=== PATIENT | female | born 1950 | race Caucasian/White ===

== ENCOUNTER 2022-03-10 21:56 | Emergency (ER) | payer MEDICARE, BC ==
[2022-03-10 22:26] LABS: ESTIMATED GFR 101 mL/min (>60)
[2022-03-10] MEDS ORDERED: Ondansetron 4 MG Tab.DIS PO ONE (22:29)
[2022-03-10] MEDS ORDERED: Ondansetron 4 MG Tab.DIS ONE (22:30)
[2022-03-10] MEDS ORDERED: Sodium Chloride 0.9% 1,000 ML IV ONE (22:31)
[2022-03-10] MEDS ORDERED: Ondansetron 4 MG/2 ML SDV IVPUSH ONE (22:38)
[2022-03-11] MEDS ORDERED: Diphtheria,Pertussis(Acell),Tetanus Vaccine 0.5 ML Syringe IM ONE (00:43)
== END 2022-03-11 01:40 | disposition home or self-care (01) ==
LOC: FB.ED 21:56
DX: S01.81XA Laceration without foreign body of other part of head, initial encounter (principal); S63.501A Unspecified sprain of right wrist, initial encounter; E87.1 Hypo-osmolality and hyponatremia; F10.129 Alcohol abuse with intoxication, unspecified; Z23 Encounter for immunization; W01.10XA Fall on same level from slipping, tripping and stumbling with subsequent striking against unspecified object, initial encounter
CPT/HCPCS: 12011; 36415; 70450; 73110; 80053; 80307; 85025; 90471; 96361; 96374; 99284; J2405; J7030; Q0162

== ENCOUNTER 2024-10-21 11:27 | Emergency (ER) | payer MEDICARE, BC ==
[2024-10-21 12:27] LABS: BLOOD UREA NITROGEN,BUN 12 mg/dL (7-18); CALCIUM 8.7 mg/dL (8.6-10.2); CARBON DIOXIDE,CO2 20 mmol/L (21-32); CHLORIDE,CL 93 mmol/L (100-110); CREATININE 0.8 mg/dL (0.55-1.02); EST CRCL DRUG DOSING (CG) 58.04 mL/min; ESTIMATED GFR 79 mL/min (>60); GLUCOSE RANDOM 104 mg/dL (80-116); SODIUM,NA 130 mmol/L (135-145)
[2024-10-21 12:28] LABS: HEMATOCRIT 29.8 % (34.2-48.2); HEMOGLOBIN 10.5 g/dL (11.4-15.5); MEAN CORPUSCULAR HEMOGLOBIN 35.3 pg (23.9-33.9); MEAN CORPUSCULAR HGB CONC 35.2 g/dL (31.9-34.8); MEAN CORPUSCULAR VOLUME 100.4 fL (76.7-100.5); PLATELET COUNT,PLT 204 x10(3)uL (151-488); RED BLOOD CELL COUNT 2.97 x10(6)uL (3.60-5.20); RED CELL DISTRIBUTION WIDTH 13.1 % (12.3-16.5); WHITE BLOOD CELL COUNT,WBC 6.7 x10-3/uL (3.0-10.3)
[2024-10-21 12:33] LABS: A/G RATIO 1.1; ALANINE AMINOTRANSFERASE,ALT 26 U/L (12-36); ALBUMIN 3.9 g/dL (3.2-4.6); ALKALINE PHOSPHATASE 100 IU/L (56-112); ASPARTATE AMNIOTRANSFERASE,AST 29 IU/L (5-25); BILIRUBIN TOTAL 1.8 mg/dL (0.1-1.3); MAGNESIUM 1.3 mg/dL (1.8-2.5); PROTEIN TOTAL,TP 7.5 g/dL (6.0-8.0)
[2024-10-21 12:47] LABS: LYMPHOCYTES PERCENT MAN 11 % (13-37); MONOCYTES PERCENT MAN 5 % (4-12); SEG NEUTROPHILS PERCENT MAN 84 % (46-82)
[2024-10-21 12:51] LABS: APPEARANCE,URINE SLIGHTLY CLOUDY (CLEAR); BILIRUBIN,URINE NEGATIVE (NEGATIVE); COLOR,URINE YELLOW (YELLOW); GLUCOSE,URINE NORMAL (NORMAL); KETONES,URINE NEGATIVE (NEGATIVE); LEUKOCYTE ESTERASE,URINE MODERATE (NEGATIVE); NITRITE,URINE NEGATIVE (NEGATIVE); OCCULT BLOOD,URINE MODERATE (NEGATIVE); PROTEIN,URINE TRACE mg/dL (NEGATIVE); UROBILINOGEN,URINE NORMAL (NEGATIVE)
[2024-10-21 12:57] LABS: RBC,URINE 0-5 (0-5); SQUAMOUS EPITHELIAL CELLS,UR FEW (NS,R,O)
[2024-10-21 12:58] LABS: BACTERIA,URINE MANY (NS)
[2024-10-21] MEDS: Iopamidol 755 Mg/ML 100 ML Bottle IV ONE (14:55)
[2024-10-21] MEDS ORDERED: Naloxone 0.4 MG/ML SDV IVPUSH PRN (15:38)
[2024-10-21] MEDS: Ondansetron 4 MG/2 ML SDV IVPUSH ONE (15:48)
[2024-10-21] MEDS: Morphine 2 MG/ML SYRINGE IVPUSH ONE ×2 (15:48→16:44)
[2024-10-21] MEDS: Sodium Chloride 0.9% 1,000 ML IV SCH (16:49)
== END 2024-10-21 17:40 ==
LOC: FB.ED 11:27
DX: S52.532A Colles' fracture of left radius, initial encounter for closed fracture (principal); S22.42XA Multiple fractures of ribs, left side, initial encounter for closed fracture; S52.572A Other intraarticular fracture of lower end of left radius, initial encounter for closed fracture; S62.645A Nondisplaced fracture of proximal phalanx of left ring finger, initial encounter for closed fracture; S32.019A Unspecified fracture of first lumbar vertebra, initial encounter for closed fracture; S32.049A Unspecified fracture of fourth lumbar vertebra, initial encounter for closed fracture; I10 Essential (primary) hypertension; E78.00 Pure hypercholesterolemia, unspecified; Z79.899 Other long term (current) drug therapy; W07.XXXA Fall from chair, initial encounter; Y93.89 Activity, other specified
CPT/HCPCS: 29105; 36415; 71046; 73090-LT; 73110-LT; 74160; 74176; 80053; 81001; 83690; 83735; 85025; 87086; 87088; 87186; 96361; 96374; 96375; 96376; 99285; 99285-25; J2270; J2405; J7030; Q9967

== ENCOUNTER 2024-10-24 10:12 | Inpatient (IN) | payer MEDICARE, BC ==
[2024-11-01] MEDS: Acetaminophen 500 MG Tab PO SCH (14:49)
[2024-11-01] MEDS ORDERED: oxyCODONE 5 MG Tab PO PRN (15:30)
[2024-11-01] MEDS ORDERED: Polyethylene Glycol 3350 Powder 17 GM Packet PO PRN (15:30)
[2024-11-01] MEDS ORDERED: Bisacodyl 10 MG Supp RECTAL PRN (15:30)
[2024-11-01] MEDS ORDERED: Triamcinolone Acetonide 0.1% Crm 15 GM Tube TOP PRN (15:43)
[2024-11-01] MEDS: Methocarbamol 500 MG Tab PO SCH (16:29)
[2024-11-01] MEDS: Gabapentin 300 MG Cap PO SCH (16:29)
[2024-11-01] MEDS: oxyCODONE 5 MG Tab PO PRN (18:34)
[2024-11-01] MEDS: Calcium Carbonate 500 MG Tablet PO SCH (18:36)
[2024-11-01] MEDS: atorvaSTATin 20 MG Tab PO SCH (20:19)
[2024-11-01] MEDS: Enoxaparin 30 MG/0.3 ML Syringe SUBCUT SCH (20:20)
[2024-11-01] MEDS: Sodium Chloride 1 GM Tab PO SCH (20:20)
[2024-11-01] MEDS: Lidocaine 4% Patch TOP SCH (20:20)
[2024-11-02] MEDS: Melatonin 3 MG Tab PO PRN (00:33)
[2024-11-02] MEDS: Losartan 50 MG Tab PO SCH (09:39)
[2024-11-02] MEDS: Magnesium Chloride 64 MG Tab.ER PO SCH (09:39)
[2024-11-02] MEDS: Ferrous Sulfate 325 MG Tab PO SCH (09:39)
[2024-11-02] MEDS: Cholecalciferol (Vitamin D3) 5,000 UNIT Cap PO SCH (09:41)
[2024-11-02] MEDS: Multivitamin Tab PO SCH (09:44)
[2024-11-02] MEDS: Gabapentin 300 MG Cap PO SCH (20:17)
[2024-11-05 06:48] LABS: BASOPHILS ABSOLUTE AUTO 0.2 x10-3/uL (0.0-0.1); BASOPHILS PERCENT AUTO 2.9 % (0.2-1.5); EOSINOPHILS ABSOLUTE AUTO 0.7 x10-3/uL (0.0-0.8); EOSINOPHILS PERCENT AUTO 9.8 % (0.6-8.1); HEMOGLOBIN 7.3 g/dL (11.4-15.5); LYMPHOCYTES PERCENT AUTO 29.9 % (18.4-52.1); MEAN CORPUSCULAR HEMOGLOBIN 33.3 pg (23.9-33.9); MEAN CORPUSCULAR HGB CONC 34.2 g/dL (31.9-34.8); MEAN CORPUSCULAR VOLUME 97.3 fL (76.7-100.5); MEAN PLATELET VOLUME 6.3 fL (7.1-12.4); NEUTROPHILS ABSOLUTE AUTO 2.9 x10-3/uL (1.5-6.3); NEUTROPHILS PERCENT AUTO 43.4 % (30.8-76.2); PLATELET COUNT,PLT 614 x10(3)uL (151-488); RED BLOOD CELL COUNT 2.19 x10(6)uL (3.60-5.20); RED CELL DISTRIBUTION WIDTH 13.6 % (12.3-16.5); WHITE BLOOD CELL COUNT,WBC 6.8 x10-3/uL (3.0-10.3)
[2024-11-05 06:53] LABS: HEMATOCRIT 21.3 % (34.2-48.2)
[2024-11-05 06:59] LABS: A/G RATIO 0.7; ALANINE AMINOTRANSFERASE,ALT 12 U/L (12-36); ALBUMIN 2.7 g/dL (3.2-4.6); ALKALINE PHOSPHATASE 105 IU/L (56-112); ASPARTATE AMNIOTRANSFERASE,AST 18 IU/L (5-25); BILIRUBIN TOTAL 0.3 mg/dL (0.1-1.3); BLOOD UREA NITROGEN,BUN 9 mg/dL (7-18); BUN/CREATININE RATIO 11.3 (9-20); CALCIUM 8.8 mg/dL (8.6-10.2); CARBON DIOXIDE,CO2 26 mmol/L (21-32); CHLORIDE,CL 100 mmol/L (100-110); CREATININE 0.8 mg/dL (0.55-1.02); EST CRCL DRUG DOSING (CG) 58.04 mL/min; ESTIMATED GFR 79 mL/min (>60); GLUCOSE RANDOM 93 mg/dL (80-116); POTASSIUM,K 4.2 mmol/L (3.5-5.3); PROTEIN TOTAL,TP 6.4 g/dL (6.0-8.0); SODIUM,NA 135 mmol/L (135-145)
[2024-11-05] MEDS ORDERED: Ibuprofen 200 MG Tab PO PRN (09:24)
[2024-11-06] MEDS: ALENDRONATE SODIUM 70 MG PO SCH (06:08)
[2024-11-06] MEDS: Sennosides/Docusate Sodium 50-8.6 MG Tab PO PRN (21:23)
[2024-11-07] MEDS: Menthol 10%/Methyl Salicylate 30% 85 GM Tube TOP PRN (00:35)
[2024-11-07] MEDS: diphenhydrAMINE 25 MG Cap PO PRN (15:41)
[2024-11-08 06:58] LABS: BASOPHILS ABSOLUTE AUTO 0.2 x10-3/uL (0.0-0.1); BASOPHILS PERCENT AUTO 3.3 % (0.2-1.5); EOSINOPHILS ABSOLUTE AUTO 0.7 x10-3/uL (0.0-0.8); EOSINOPHILS PERCENT AUTO 10.1 % (0.6-8.1); HEMATOCRIT 24.6 % (34.2-48.2); HEMOGLOBIN 8.4 g/dL (11.4-15.5); LYMPHOCYTES ABSOLUTE AUTO 2.3 x10-3/uL (1.0-4.4); LYMPHOCYTES PERCENT AUTO 34.7 % (18.4-52.1); MEAN CORPUSCULAR HEMOGLOBIN 32.9 pg (23.9-33.9); MEAN CORPUSCULAR HGB CONC 34.2 g/dL (31.9-34.8); MEAN CORPUSCULAR VOLUME 96.4 fL (76.7-100.5); MONOCYTES ABSOLUTE AUTO 0.7 x10-3/uL (0.3-1.0); MONOCYTES PERCENT AUTO 10.7 % (4.4-15.7); NEUTROPHILS ABSOLUTE AUTO 2.8 x10-3/uL (1.5-6.3); NEUTROPHILS PERCENT AUTO 41.2 % (30.8-76.2); PLATELET COUNT,PLT 714 x10(3)uL (151-488); RED BLOOD CELL COUNT 2.55 x10(6)uL (3.60-5.20); RED CELL DISTRIBUTION WIDTH 13.8 % (12.3-16.5); WHITE BLOOD CELL COUNT,WBC 6.7 x10-3/uL (3.0-10.3)
[2024-11-08 07:06] LABS: A/G RATIO 0.8; ALANINE AMINOTRANSFERASE,ALT 15 U/L (12-36); ALBUMIN 3.2 g/dL (3.2-4.6); ALKALINE PHOSPHATASE 129 IU/L (56-112); ASPARTATE AMNIOTRANSFERASE,AST 22 IU/L (5-25); BILIRUBIN TOTAL 0.3 mg/dL (0.1-1.3); BLOOD UREA NITROGEN,BUN 11 mg/dL (7-18); BUN/CREATININE RATIO 13.8 (9-20); CALCIUM 9.2 mg/dL (8.6-10.2); CARBON DIOXIDE,CO2 27 mmol/L (21-32); CHLORIDE,CL 101 mmol/L (100-110); CREATININE 0.8 mg/dL (0.55-1.02); EST CRCL DRUG DOSING (CG) 58.04 mL/min; ESTIMATED GFR 79 mL/min (>60); GLUCOSE RANDOM 89 mg/dL (80-116); POTASSIUM,K 4.4 mmol/L (3.5-5.3); SODIUM,NA 135 mmol/L (135-145)
[2024-11-10] MEDS: Sodium Chloride 1 GM Tab PO SCH (08:34)
[2024-11-10] MEDS: Ondansetron 4 MG Tab.DIS PO PRN (17:58)
[2024-11-11 06:39] LABS: BASOPHILS ABSOLUTE AUTO 0.2 x10-3/uL (0.0-0.1); EOSINOPHILS ABSOLUTE AUTO 0.8 x10-3/uL (0.0-0.8); EOSINOPHILS PERCENT AUTO 13.1 % (0.6-8.1); HEMATOCRIT 23.5 % (34.2-48.2); HEMOGLOBIN 8.2 g/dL (11.4-15.5); LYMPHOCYTES ABSOLUTE AUTO 2.3 x10-3/uL (1.0-4.4); LYMPHOCYTES PERCENT AUTO 40.7 % (18.4-52.1); MEAN CORPUSCULAR HEMOGLOBIN 33.4 pg (23.9-33.9); MEAN CORPUSCULAR HGB CONC 35.1 g/dL (31.9-34.8); MEAN CORPUSCULAR VOLUME 95.1 fL (76.7-100.5); MEAN PLATELET VOLUME 6.1 fL (7.1-12.4); MONOCYTES ABSOLUTE AUTO 0.7 x10-3/uL (0.3-1.0); NEUTROPHILS ABSOLUTE AUTO 1.7 x10-3/uL (1.5-6.3); NEUTROPHILS PERCENT AUTO 30.2 % (30.8-76.2); PLATELET COUNT,PLT 552 x10(3)uL (151-488); RED BLOOD CELL COUNT 2.47 x10(6)uL (3.60-5.20); RED CELL DISTRIBUTION WIDTH 13.9 % (12.3-16.5); WHITE BLOOD CELL COUNT,WBC 5.8 x10-3/uL (3.0-10.3)
[2024-11-11 06:59] LABS: A/G RATIO 0.9; ALANINE AMINOTRANSFERASE,ALT 17 U/L (12-36); ALBUMIN 3.1 g/dL (3.2-4.6); ALKALINE PHOSPHATASE 105 IU/L (56-112); ASPARTATE AMNIOTRANSFERASE,AST 18 IU/L (5-25); BILIRUBIN TOTAL 0.4 mg/dL (0.1-1.3); BLOOD UREA NITROGEN,BUN 10 mg/dL (7-18); BUN/CREATININE RATIO 11.1 (9-20); CALCIUM 9.1 mg/dL (8.6-10.2); CARBON DIOXIDE,CO2 28 mmol/L (21-32); CHLORIDE,CL 99 mmol/L (100-110); CREATININE 0.9 mg/dL (0.55-1.02); EST CRCL DRUG DOSING (CG) 51.59 mL/min; ESTIMATED GFR 68 mL/min (>60); GLUCOSE RANDOM 84 mg/dL (80-116); POTASSIUM,K 4.5 mmol/L (3.5-5.3); PROTEIN TOTAL,TP 6.6 g/dL (6.0-8.0); SODIUM,NA 133 mmol/L (135-145)
== END 2024-11-12 12:02 | disposition home health service (06) | DRG 948 ==
LOC: FB.MS 11-01 12:57
PROVIDERS: ADMIT Internal Medicine; ATTEND Internal Medicine
DX: R53.81 Other malaise (principal); S32.040A Wedge compression fracture of fourth lumbar vertebra, initial encounter for closed fracture; S52.602A Unspecified fracture of lower end of left ulna, initial encounter for closed fracture; S32.049A Unspecified fracture of fourth lumbar vertebra, initial encounter for closed fracture; D62 Acute posthemorrhagic anemia; E87.1 Hypo-osmolality and hyponatremia; S52.002D Unspecified fracture of upper end of left ulna, subsequent encounter for closed fracture with routine healing; S52.102D Unspecified fracture of upper end of left radius, subsequent encounter for closed fracture with routine healing; E78.00 Pure hypercholesterolemia, unspecified; I10 Essential (primary) hypertension; G62.9 Polyneuropathy, unspecified; Z98.890 Other specified postprocedural states; Z98.891 History of uterine scar from previous surgery; Z79.899 Other long term (current) drug therapy
CPT/HCPCS: 36415; 80053; 85025; 97110-GP; 97116-GP; 97161-GP; 97165-GO; 97530-GO; 97530-GP; 97535-GO; 99305; 99308; 99316; A9270-GY; J1650; Q0162